=== PATIENT | male | born 1985 | race Caucasian/White ===

== ENCOUNTER 2016-08-02 22:36 | Emergency (ER) | payer OTHER ==
[~2016-08-02] VITALS: Ht 190.5 cm; Wt 86.2 kg
[2016-08-02] MEDS ORDERED: MULTI VITAMIN1 EACH ORAL (22:45)
[2016-08-02 22:59] VITALS: BP 113/56
[2016-08-02] MEDS ORDERED: TdaP Vaccine 0.5ml Syr IM ONE (23:00)
[2016-08-02] MEDS ORDERED: Lidocaine 1% MPF 10mg/ml 5ml INJ ONE (23:00)
[2016-08-02] MEDS ORDERED: Bacitracin Oint UD TOPIC ONE (23:00)
[2016-08-02] MEDS ORDERED: Lidocaine HCl 2% Jelly 5ml Tube TOPIC ONE (23:00)
--- NOTE | 2016-08-03 00:07 | Emergency Room Report ---
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 Some bleeding controlled by pressure. Lower lip. Not through through. Uncertain last tetanus. Pain = mild, not give number. Allergies: Coded Allergies: No Known Allergies (Unverified , 08/02/16) Patient History Past Medical History: see triage record Social History: Reports: smoking Social History Narrative Reviewed Nursing Documentation: PMH: Agreed, PSxH: Agreed Nursing Documentation-PMH Hx Asthma: Yes - CHILDHOOD Review of Systems All Other Systems: negative except mentioned in HPI Physical Exam Vital Signs Date Time Temp Pulse Resp B/P Pulse Ox O2 Delivery O2 Flow Rate FiO2 08/02/16 22:39 97.7 78 18 113/56 96 Room Air Sp02 EP Interpretation: reviewed, normal General Appearance: well appearing, no apparent distress, GCS 15 Head: normocephalic, atraumatic Eyes: bilateral eye PERRL, bilateral eye normal inspection ENT: hearing grossly normal, normal voice, moist mucus membranes, other - 1 cm laceration L lower lip through mariia border Neck: full range of motion, supple Respiratory: no respiratory distress, speaking full sentences Musculoskeletal: no calf tenderness Neurologic: alert, normal gait, grossly normal Psychiatric: mood/affect normal Skin: laceration - see above Procedures Laceration/Wound Repair Laceration/Wound Repair : Consent: Verbal Wound Location: face, other - lower lip Wound Length (cm): 1 Wound Explored: bite, linear Betadine Prep?: Yes - also H2O2 inside mouth Anesthesia: 1% Lidocaine Volume Anesthetic (ccs): 20 Wound Debrided: none Wound Repaired With: sutures Suture Size/Type: 6:0, proline Sterile Dressing Applied?: No - bacitracin Patient Tolerated: Well Complications: None Medical Decision Making Diagnostic Impression: Primary Impression: Dog bite Qualified Codes: W54.0XXA - Bitten by dog, initial encounter Additional Impression: Laceration of lip Qualified Codes: S01.511A - Laceration without foreign body of lip, initial encounter ER Course Patient with dog bite lip. Tetanus and antibiotics indicated. Sutured. Cosmetic closure (mariia border approximated). Tolerated well. Patient stable for outpatient observation and treatment. Last Vital Signs Date Time Temp Pulse Resp B/P Pulse Ox O2 Delivery O2 Flow Rate FiO2 08/03/16 00:19 03/0108/02/16 22:59 97.7 78 18 96 Room Air Status: improved Disposition: HOME, SELF-CARE Condition: Improved Scripts Bacitracin (Bacitracin) 28.4 Gm Oint...g. 1 APPLIC TOPIC BID, #10 GM Prov: Adarsh Dale M.D. 08/03/16 Amoxicillin/Potassium Clav 500-125 Tablet* (AUGMENTIN 500-125 TABLET*) 1 Each Tablet 1 TAB ORAL THREE TIMES A DAY, #21 TAB Prov: Adarsh Dale M.D. 08/03/16 Referrals: NOT CHOSEN [facility]/,REFERRING (PCP) Adarsh Dale M.D. Aug 03, 2016 00:07
[2016-08-03] MEDS ORDERED: AUGMENTIN 500-1 EACH ORAL (00:09)
[2016-08-03] MEDS ORDERED: BACITRACIN15 GM TOPIC (00:09)
[2016-08-03 00:19] VITALS: BP 1/1
== END 2016-08-03 00:20 | disposition home or self-care (01) ==
LOC: EMR 23:12
DX: S01.511A Laceration without foreign body of lip, initial encounter (principal); W54.0XXA Bitten by dog, initial encounter; Z23 Encounter for immunization; Y93.9 Activity, unspecified; Y92.9 Unspecified place or not applicable; F17.200 Nicotine dependence, unspecified, uncomplicated
CPT/HCPCS: 90471; 90715; 96372

== ENCOUNTER 2016-08-06 07:27 | Emergency (ER) | payer OTHER ==
[~2016-08-06] VITALS: Ht 190.5 cm; Wt 86.2 kg
[~2016-08-06 07:27] MED LIST: AUGMENTIN 500-1 EACH ORAL; BACITRACIN15 GM TOPIC; MULTI VITAMIN1 EACH ORAL
[2016-08-06 08:02] VITALS: BP 116/70
--- NOTE | 2016-08-06 08:02 | Emergency Room Report ---
History of Present Illness General Chief Complaint: Wound Recheck/Suture Removal Source: Patient Present Illness HPI 31YOM walk-in for suture removal 4 days after suture placement to lower right lip vermilion border s/p dog bite. Taking Abx. Denies fever/chills, pus drainage. Feels well otherwise. Allergies: Coded Allergies: No Known Allergies (Unverified , 08/02/16) Patient History Past Medical History: none Past Surgical History: none Pertinent Family History: none Social History: Denies: alcohol use, drug use, smoking Immunizations: UTD Reviewed Nursing Documentation: PMH: Agreed, PSxH: Agreed Nursing Documentation-PMH Hx Asthma: Yes - CHILDHOOD Review of Systems All Other Systems: negative except mentioned in HPI Physical Exam Vital Signs Date Time Temp Pulse Resp B/P Pulse Ox O2 Delivery O2 Flow Rate FiO2 08/06/16 07:34 97.9 61 17 116/70 98 Room Air Sp02 EP Interpretation: reviewed, normal General Appearance: normal inspection, well appearing, no apparent distress, alert Head: atraumatic Eyes: bilateral eye EOMI, bilateral eye PERRL ENT: normal ENT inspection, hearing grossly normal, normal voice Neck: normal inspection, full range of motion, supple, no bony tend Respiratory: normal inspection, lungs clear, normal breath sounds, no respiratory distress, no retraction, no wheezing Cardiovascular #1: regular rate, rhythm, no edema Gastrointestinal: normal inspection, normal bowel sounds, non tender, soft, no guarding, no hernia Genitourinary: no CVA tenderness Musculoskeletal: normal inspection, back normal, normal range of motion, Nisreen' s Sign negative Neurologic: normal inspection, alert, oriented x3, responsive, 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 Healing well. No dehiscence. No cellulitis Medical Decision Making Diagnostic Impression: Primary Impression: Encounter for removal of sutures ER Course 3 Sutures removed Patient tolerated well Advised completion of Abx Avoid potential trauma to face until completely healed No sign of cellulitis, infection DC home Last Vital Signs Date Time Temp Pulse Resp B/P Pulse Ox O2 Delivery O2 Flow Rate FiO2 08/06/16 07:34 97.9 61 17 116/70 98 Room Air Status: improved Disposition: HOME, SELF-CARE Condition: Improved Referrals: NOT CHOSEN IPA/,REFERRING (PCP) Patient Instructions: Wound Check, Suture Removal, Care After MICK VARNER M.D. Aug 06, 2016 08:02
== END 2016-08-06 08:04 | disposition home or self-care (01) ==
LOC: EMR 07:48
DX: S01.511D Laceration without foreign body of lip, subsequent encounter (principal); W54.0XXD Bitten by dog, subsequent encounter; Z48.02 Encounter for removal of sutures
CPT/HCPCS: 99282